=== PATIENT | male | born 1990 | race Caucasian/White ===

== ENCOUNTER 2018-08-08 13:02 | Inpatient (IN) | payer SELFPAY ==
[~2018-08-08] VITALS: Ht 188 cm; Wt 86.1 kg
[2018-08-08 13:38] LABS: BASOPHILS ABSOLUTE AUTO 0.06 K/mm3 (0.00-0.23); BASOPHILS PERCENT AUTO 1 % (0-2); EOSINOPHILS ABSOLUTE AUTO 0.02 K/mm3 (0.00-0.68); EOSINOPHILS PERCENT AUTO 0 % (0-6); Hemoglobin 14.1 g/dL (13.5-17.5); IMMATURE GRAN ABSOLUTE AUTO 0.04 K/mm3 (0.00-0.10); IMMATURE GRAN PERCENT AUTO 0 % (0-1); LYMPHOCYTES ABSOLUTE AUTO 1.41 K/mm3 (0.84-5.20); LYMPHOCYTES PERCENT AUTO 14 % (21-46); MONOCYTES ABSOLUTE AUTO 1.01 K/mm3 (0.16-1.47); MONOCYTES PERCENT AUTO 10 % (4-13); Mean Corpuscular HGB 35.3 pg (26.0-34.0); Mean Corpuscular HGB Conc 33.6 g/dL (31.5-36.5); Mean Corpuscular Volume 105 fL (80-100); Mean Platelet Volume 10.8 fL (9.1-12.4); NEUTROPHILS ABSOLUTE AUTO 7.64 K/mm3 (1.96-9.15); NEUTROPHILS PERCENT AUTO 75 % (41-73); Platelet Count 182 K/mm3 (150-400); RDW Coefficient Variation 11.1 % (11.7-14.2); RDW Standard Deviation 43.1 fL (35.1-46.3); Red Blood Cell Count 3.99 M/mm3 (4.30-5.90); White Blood Cell Count 10.18 K/mm3 (4.00-11.30)
[2018-08-08 13:53] LABS: Alanine Aminotransfer (ALT/SGP 212 U/L (12-78); Albumin, Blood 4.3 g/dL (3.4-5.0); Albumin/Globulin Ratio 1.2 (0.8-1.8); Alk Phos 94 U/L (50-136); Anion Gap 19 mmol/L (6-16); Aspartate Aminotrans (AST/SGOT 231 U/L (12-37); Bilirubin, Total 6.2 mg/dL (0.1-1.0); Blood Urea Nitrogen 10 mg/dL (8-24); Bun/Creatinine Ratio 13.9 (12.0-20.0); CO2, Blood 15 mmol/L (21-32); Calcium, Blood 9.2 mg/dL (8.5-10.1); Chloride, Blood 99 mmol/L (98-108); Creatinine, Blood 0.72 mg/dL (0.60-1.20); Globulin, Blood 3.6 g/dL (2.2-4.0); Glomerular Filtration Rate >60 (60-); Glucose, Blood 152 mg/dL (70-99); Magnesium, Blood 1.9 mg/dL (1.6-2.4); Potassium, Blood 3.6 mmol/L (3.5-5.5); Sodium, Blood 133 mmol/L (136-145); Total Protein, Blood 7.9 g/dL (6.4-8.2)
[2018-08-08 14:13] LABS: International Normalized Ratio 1.06; Prothrombin Time Results 11.2 Sec (9.7-11.5)
[2018-08-08] MEDS ORDERED: Ibuprofen Ib200 MG PO (15:28)
[2018-08-08] MEDS ORDERED: Biotin10 MG PO (15:29)
--- NOTE | 2018-08-09 00:28 | NUR ---
ASSUMED CARE OF PT PT TO ICU 9 FROM ED. PT ALERT AND ORIENTED BUT FORGETFUL OF HIS PHYSICAL LIMITATIONS. PT ABLE TO STAND AND PIVOT INTO BED WITH ASSISTANCE. PT APPEARS UNSTEADY ON HIS FEET AND WAS REMINDED THAT HE NEEDS TO CALL FOR ASSISTANCE PRIOR TO AMBULATING. BED ALARM TURNED ON. PT APPEARS FLUSHED WITH BLOOD SHOT EYES AND SLIGHT JAUNDICE. PT STATES THAT HE DRINKS DAILY. WHEN ASKED WHAT HE DRINKS AND HOW MUCH PT RESPONDED "3-6 SHOTS OR VODKA OR 3-5 BEERS". PT STOPPED DRINKING "2 DAYS AGO, COLD TURKEY". PT AND HIS MOTHER ARE TRAVELLING FROM [facility] TO [facility] SO THAT PT CAN ATTEND [employer] AND "SOBER UP". WHILE PASSING THROUGH [place] PT REPORTEDLY BECAME ANXIOUS AND HAD PANIC ATTACK. PT ATTEMPTED TO RUN AWAY FROM HIS MOTHER AND FELL BRUISING HIS LEFT HIP/FLANK, LEFT ELBOW AND HIS KNEES BILATERALLY. (PLEASE SEE PICTURES). WHEN PT AND HIS MOTHER ARRIVED TO [place] THEY STOPPED AT [employer], PT'S MOTHER HEARD A GRUNT AND WITNESSED THE PT ACTIVELY SEIZING. PT HIT THE LEFT SIDE OF HIS HEAD ON THE PAVEMENT (CT NEGATIVE) AND SEIZED FOR APPROXIMATELY "4 MINUTES". PT HAS HAD A PREVIOUS SEIZURE 4 YEARS AGO THAT PT STATES "WASN'T ALCOHOL RELATED". PT ALSO HAS AN EXTENSIVE HX OF SYNCOPAL EPISODES SINCE HE WAS A TEENAGER. [facility] PROTOCOL IN PLACE. PT HAS NOTICABLE TREMORS. 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 PT DENIES MUNOZ, N/V, OR HALLUCINATIONS AT THIS TIME. PLEASE SEE FULL SHIFT ASSESSMENT.
[2018-08-09 04:16] LABS: BASOPHILS ABSOLUTE AUTO 0.03 K/mm3 (0.00-0.23); BASOPHILS PERCENT AUTO 1 % (0-2); EOSINOPHILS ABSOLUTE AUTO 0.08 K/mm3 (0.00-0.68); EOSINOPHILS PERCENT AUTO 2 % (0-6); Hematocrit 37.3 % (37.0-53.0); Hemoglobin 12.4 g/dL (13.5-17.5); IMMATURE GRAN ABSOLUTE AUTO 0.01 K/mm3 (0.00-0.10); IMMATURE GRAN PERCENT AUTO 0 % (0-1); LYMPHOCYTES ABSOLUTE AUTO 1.23 K/mm3 (0.84-5.20); LYMPHOCYTES PERCENT AUTO 24 % (21-46); MONOCYTES ABSOLUTE AUTO 0.57 K/mm3 (0.16-1.47); MONOCYTES PERCENT AUTO 11 % (4-13); Mean Corpuscular HGB 35.7 pg (26.0-34.0); Mean Corpuscular HGB Conc 33.2 g/dL (31.5-36.5); Mean Platelet Volume 10.4 fL (9.1-12.4); NEUTROPHILS ABSOLUTE AUTO 3.17 K/mm3 (1.96-9.15); NEUTROPHILS PERCENT AUTO 62 % (41-73); Platelet Count 127 K/mm3 (150-400); RDW Coefficient Variation 11.1 % (11.7-14.2); RDW Standard Deviation 43.8 fL (35.1-46.3); Red Blood Cell Count 3.47 M/mm3 (4.30-5.90); White Blood Cell Count 5.09 K/mm3 (4.00-11.30)
[2018-08-09 04:17] LABS: Mean Corpuscular Volume 108 fL (80-100)
[2018-08-09 04:33] LABS: International Normalized Ratio 1.03; Prothrombin Time Results 10.9 Sec (9.7-11.5)
[2018-08-09 04:36] LABS: Alanine Aminotransfer (ALT/SGP 170 U/L (12-78); Albumin, Blood 3.8 g/dL (3.4-5.0); Albumin/Globulin Ratio 1.2 (0.8-1.8); Alk Phos 76 U/L (50-136); Anion Gap 8 mmol/L (6-16); Aspartate Aminotrans (AST/SGOT 154 U/L (12-37); Bilirubin, Total 5.4 mg/dL (0.1-1.0); Blood Urea Nitrogen 5 mg/dL (8-24); Bun/Creatinine Ratio 7.5 (12.0-20.0); CO2, Blood 25 mmol/L (21-32); Calcium, Blood 8.4 mg/dL (8.5-10.1); Chloride, Blood 105 mmol/L (98-108); Creatinine, Blood 0.67 mg/dL (0.60-1.20); Globulin, Blood 3.3 g/dL (2.2-4.0); Glomerular Filtration Rate >60 (60-); Glucose, Blood 78 mg/dL (70-99); Potassium, Blood 3.6 mmol/L (3.5-5.5); Sodium, Blood 138 mmol/L (136-145); Total Protein, Blood 7.1 g/dL (6.4-8.2)
--- NOTE | 2018-08-09 05:46 | NUR ---
SHIFT SUMMARY NO ACUTE CHANGES SINCE ADMISSION TO ICU. PT HAS SLEPT MOST OF THE NIGHT. NO SIGNS OF ALCOHOL W/D AT THIS TIME WITH EXCEPTION TO PT'S TREMBLING. PT ABLE TO STAND AT BEDSIDE WITH ASSISTANCE TO USE URINAL. PT APPEARS WEAK AND SWAYS A BIT WHILE STANDING. URINARY OUTPUT 950 ML. VSS THROUGHOUT SHIFT. PLEASE SEE ADMISSION NOTES AND ASSESSMENT. WILL REPORT TO DAYSHIFT NURSE.
--- NOTE | 2018-08-09 09:09 | NUR ---
PT ASLEEP, AWAKENS TO VOICE. DENIES C/O MUNOZ, NAUSEA. CIWA 6 FOR TREMORS,CLAMMY, MILD ANXIETY. EEG ORDERED. PT GIVEN LIBRIUM. PT'S MOTHER AT BEDSIDE.
--- NOTE | 2018-08-09 11:19 | NUR ---
DR BROWN AT BEDSIDE. PT NOW [facility] STATUS W/O TELE. CIWA 4. PT DENIES COMPLAINTS
--- NOTE | 2018-08-09 19:28 | NUR ---
CIWA 4-6 T/O SHIFT. PT DENIES COMPLAINTS. PT MOTHER REMAINS AT BEDSIDE. PT QUITE, FLAT, APPROPRIATE, AND PLEASANT.
--- NOTE | 2018-08-09 21:06 | NUR ---
ASSUMED CARE OF PT PT ALERT AND ORIENTED LAYING IN AN UPRIGHT POSITION IN BED. PT'S MOTHER AT BEDSIDE. PT DENIES MUNOZ, SWEATS, TACTILE/VISUAL/AUDITORY HALLUCINATIONS. PT APPEARS TREMULOUS, PT'S MOTHER STATES TREMORS ARE MORE PRONOUNCED THAN BASELINE. PT IS PLEASANT AND COOPERATIVE. SEE FULL SHIFT ASSESSMENT.
--- NOTE | 2018-08-10 06:21 | NUR ---
SHIFT SUMMARY NO ACUTE CHANGES OVERNIGHT. PT SLEPT WELL AND EXHIBITED NO SIGNS OF ALCOHOL WITHDRAWAL. PT ABLE TO AMBULATE TO THE TOILET WITH NO COMPLAINT OF DIZZINESS AND NO OUTWARD SIGNS BEING UNSTEADY. WILL REPORT TO DAYSHIFT NURSE.
--- NOTE | 2018-08-10 08:00 | NUR ---
Recieved report from Michelet LANGE. patient was sleeping when going in right after report and when going in to see at breakfast he was sitting up eating. Gave him and mother EEG results and talked with patient in depth about stop drinking for his health benifet and that he needs to check in to a program to get more tools to stop drinking. He is on RA and sats 100%. He has slight tremors and shows lttle withdrawl signs or symptoms on 4th day. VSS. Hev has 18ga IV infusing D5w NS 100ml/hr. Patient alert and oriented and able to communicate his needs.
--- NOTE | 2018-08-10 09:30 | NUR ---
Dr Bowen here and is dischargeing patient home and also had tlak with patient about health concerns and need to get into progarm when get home to [place]. He is getting dressed and awaiting momther to get back.
[2018-08-10] MEDS ORDERED: FAMO20 PO (10:30)
[2018-08-10] MEDS ORDERED: CHLO25 PO (10:32)
--- NOTE | 2018-08-10 10:43 | NUR ---
Patient given written dicharge instructions and talked about use of Librium and the need to get in program. Pulled 18ga IV out intact and site WNLs and he ambulated to exit and to [facility] meds at [facility]. He and his mother returned understanding of information.
== END 2018-08-10 10:43 | disposition home or self-care (01) | DRG 897 ==
LOC: ER 13:02 → ICUW 15:59 → ERHOLD 15:59 → ICUW 22:45
PROVIDERS: Emergency Medicine; ADMIT Internal Medicine
DX: F10.239 Alcohol dependence with withdrawal, unspecified (principal); E87.2 Acidosis; E87.1 Hypo-osmolality and hyponatremia; R56.9 Unspecified convulsions; F17.210 Nicotine dependence, cigarettes, uncomplicated; K76.0 Fatty (change of) liver, not elsewhere classified; R73.9 Hyperglycemia, unspecified
CPT/HCPCS: 36415; 70450; 74177; 80053; 83690; 83735; 85025; 85610; 85730; 95819; 96361; 96365-59; 96366; 96375; 96376; 99285-25; J1650; J2060; J3475; J7030; J7042; Q9967